=== PATIENT | male | born 1960 | race Caucasian/White ===

== ENCOUNTER → 2020-01-05 | Emergency (ER) | payer OTHER ==
[~2020-01-05] VITALS: Ht 175.3 cm; Wt 81.6 kg
[~2020-01-05] MED LIST: ALBUTEROL SULF 2.5 MG/0.5ML(0.5%) NEB SOLN NEB ONE; DexAMETHasone INJECTION 10 MG in D5W 5% 50 ML IV ONE; DexAMETHasone INJECTION 10 MG in D5W 5% 50 ML IV SCH; DexAMETHasone SOD PHOS 4 MG/1ML SDV INJ ONE; FAMOTIDINE (10MG/ML) 2ML VL IV ONE; IPRATROPIUM BROM 0.5 MG/2.5ML INH SOL NEB ONE; SODIUM CHLORIDE 0.9% 1,000 ML IV ONE; diphenhdrAMINE HCL 50 MG/1 ML VL IV ONE
[2020-01-05 05:32] VITALS: BP 138/80
== END | disposition home or self-care (01) ==
LOC: EDBD 03:46 → ER 03:49
DX: T78.40XA Allergy, unspecified, initial encounter (principal); I10 Essential (primary) hypertension; Z88.0 Allergy status to penicillin; X58.XXXA Exposure to other specified factors, initial encounter
CPT/HCPCS: 94640; 96365; 96375; 99284; J1100; J1200; J3490; J7030; J7060; J7644; 96374